=== PATIENT | male | born 1980 | race Caucasian/White ===

== ENCOUNTER 2023-11-01 14:12 | Inpatient (IN) | payer OTHER ==
[2023-11-01 15:23] VITALS: BMI 22.7
[2023-11-01] MEDS ORDERED: BENZOCAINE/MENTHOL (CHLORASEPTIC ) LOZENGE MM PRN (17:43)
[2023-11-01] MEDS ORDERED: guaiFENesin 600 MG TABLET.ER (FP) PO PRN (17:43)
[2023-11-01] MEDS ORDERED: BENZONATATE 200 MG CAPSULE PO PRN (17:43)
[2023-11-01] MEDS ORDERED: ACETAMINOPHEN 325 MG TABLET (FP) PO PRN (17:43)
[2023-11-01] MEDS ORDERED: LOPERAMIDE HCL 2 MG CAPSULE PO PRN (17:43)
[2023-11-01] MEDS ORDERED: MAGNESIUM HYDROX 2400MG/30ML ORAL SUSPENSION 30 ML CUP PO PRN (17:43)
[2023-11-01] MEDS ORDERED: IBUPROFEN 400 MG TABLET (FP) PO PRN (17:43)
[2023-11-01] MEDS ORDERED: NALOXONE (NARCAN) HCL 4 MG/0.1 ML SPRAY NS PRN (17:43)
[2023-11-01] MEDS ORDERED: POLYETHYLENE GLYCOL (HEALTHYLAX) 3350 17 GM PACKET PO PRN (17:43)
[2023-11-01] MEDS ORDERED: ONDANSETRON *ODT* 4 MG TABLET SL PRN (17:43)
[2023-11-01] MEDS ORDERED: NALOXONE HCL 0.4 MG/ML VIAL IM PRN (17:43)
[2023-11-01] MEDS ORDERED: DICYCLOMINE HCL 10 MG CAPSULE PO PRN (17:43)
[2023-11-01] MEDS ORDERED: MAG HYDROX/AL HYDROX/SIMETH 30 ML UNIT-DOSE CUP PO PRN (17:43)
[2023-11-01] MEDS ORDERED: BISMUTH SUBSALICYLATE 524 MG/30 ML PO PRN (17:43)
[2023-11-01] MEDS ORDERED: NICOTINE 14 MG/24 HOURS TOPICAL PATCH TD ONE (18:23)
[2023-11-01] MEDS ORDERED: methaDONE HCL 10 MG TABLET (FOR DETOX USE ONLY) ONE (18:23)
[2023-11-01] MEDS: methaDONE HCL 10 MG TABLET (FOR DETOX USE ONLY) PO ONE (18:29)
[2023-11-01] MEDS: NICOTINE 14 MG/24 HOURS TOPICAL PATCH TD SCH (18:31)
[2023-11-01] MEDS: chlordiazePOXIDE HCL 25 MG CAPSULE PO PRN (19:45)
[2023-11-01] MEDS: METHOCARBAMOL 500 MG TABLET PO PRN (19:45)
[2023-11-01] MEDS: chlordiazePOXIDE HCL 25 MG CAPSULE PO SCH (22:15)
[2023-11-01] MEDS: THIAMINE 100 MG TABLET PO SCH (22:16)
[2023-11-01] MEDS: MELATONIN 5 MG TABLETS PO SCH (22:16)
[2023-11-02] MEDS: IBUPROFEN 600 MG TABLET (FP) PO PRN (06:17)
[2023-11-02] MEDS: PRENATAL VITAMINS W/ FOLIC ACID TABLET (FP) PO SCH (09:04)
[2023-11-02] MEDS: cloNIDine HCL 0.1 MG TABLET PO PRN (09:04)
[2023-11-02] MEDS: diazePAM 5 MG TABLET PO SCH (10:02)
[2023-11-02 11:41] LABS: HEMATOCRIT 45.5 % (35.4-49); HEMOGLOBIN 15.1 GM/dL (11.7-16.9); MCH 26.3 pg (25.7-33.7); MCHC 33.2 g/dl (32.0-35.9); MEAN CELL VOLUME 79.3 fl (80-96); MEAN PLT VOLUME 7.9 fl (7.5-11.1); PLATELET COUNT 377 10^3/uL (134-434); RBC 5.74 M/mm3 (4.00-5.60); RDW 15.9 % (11.9-15.9); WHITE BLOOD COUNT 6.1 K/mm3 (4.0-10.0)
[2023-11-02 13:01] LABS: CHLORIDE 100 mmol/L (98-107); POTASSIUM 3.9 mmol/L (3.5-5.1); SODIUM 137 mmol/L (136-145)
[2023-11-02 13:02] LABS: CALCIUM 10.3 mg/dL (8.5-10.1)
[2023-11-02 13:03] LABS: ANION GAP 11 mmol/L (4-13); BLOOD UREA NITROGEN 10.3 mg/dL (7-18); CO2 26 mmol/L (21-32); GLUCOSE,RANDOM 124 mg/dL (74-106)
[2023-11-02 13:06] LABS: CREATININE 0.9 mg/dL (0.55-1.3); SGOT/AST 15 U/L (15-37); SGPT/ALT 21 U/L (13-61)
[2023-11-02 13:08] LABS: TOT PROT 8.9 g/dl (6.4-8.2)
[2023-11-02 13:09] LABS: ALK PHOS 133 U/L (45-117)
[2023-11-02 13:20] LABS: BILIRUBIN,TOTAL 0.5 mg/dL (0.2-1)
[2023-11-02] MEDS: diazePAM 5 MG TABLET PO PRN (15:20)
[2023-11-03] MEDS ORDERED: chlordiazePOXIDE HCL 25 MG CAPSULE PO SCH (05:00)
[2023-11-03] MEDS: methaDONE HCL 10 MG TABLET (FOR DETOX USE ONLY) PO ONE (09:56)
[2023-11-03] MEDS: hydrOXYzine PAMOATE 25 MG CAPSULE (FP) PO PRN (15:55)
[2023-11-03] MEDS: QUEtiapine FUMARATE 50 MG TABLET PO SCH (22:38)
[2023-11-04] MEDS ORDERED: chlordiazePOXIDE HCL 10 MG CAPSULE PO PRN
[2023-11-04] MEDS ORDERED: chlordiazePOXIDE HCL 10 MG CAPSULE PO SCH (05:00)
[2023-11-04] MEDS: diazePAM 5 MG TABLET PO SCH (07:09)
[2023-11-04 09:13] VITALS: BP 126/92; PULSE 98; RESP 18; TEMP 98.2
[2023-11-05] MEDS ORDERED: chlordiazePOXIDE HCL 10 MG CAPSULE PO SCH (05:00)
[2023-11-05] MEDS ORDERED: diazePAM 5 MG TABLET PO SCH (06:00)
[2023-11-05] MEDS ORDERED: methaDONE HCL 10 MG TABLET (FOR DETOX USE ONLY) PO ONE (10:00)
[2023-11-06] MEDS ORDERED: chlordiazePOXIDE HCL 10 MG CAPSULE PO ONE (05:00)
[2023-11-06] MEDS ORDERED: diazePAM 5 MG TABLET PO ONE (06:00)
== END 2023-11-04 11:00 | disposition left against medical advice (07) | DRG 770 ==
LOC: YASAS 14:12 → Y3N 17:54
PROVIDERS: ADMIT Allergy & Immunology; ATTEND Surgery
PROC: HZ2ZZZZ Detoxification Services for Substance Abuse Treatment (ICD-10-PCS; principal; 2023-11-01)
DX: F11.23 Opioid dependence with withdrawal (principal); F13.230 Sedative, hypnotic or anxiolytic dependence with withdrawal, uncomplicated; F14.20 Cocaine dependence, uncomplicated; F17.210 Nicotine dependence, cigarettes, uncomplicated; G47.00 Insomnia, unspecified; Z56.0 Unemployment, unspecified
CPT/HCPCS: 36415; 80053; 80305; 80307; 85027; 86780; 93005; 93010